=== PATIENT | female | born 1990 | race Two or more races ===

== ENCOUNTER 2016-09-12 00:41 | Inpatient (IN) | payer SELFPAY ==
[~2016-09-12] VITALS: Ht 157.5 cm; Wt 90.7 kg
[2016-09-12 01:11] LABS: BILIRUBIN,URINE NEGATIVE (NEG); GLUCOSE,URINE NEGATIVE (NEG); NITRITE,URINE NEGATIVE (NEG); PH,URINE 6.5; PROTEIN,URINE 30 mg/dL (NEG-TRACE); UROBILINOGEN,URINE 0.2 mg/dL (0.2 mg/dL)
[2016-09-12 01:42] LABS: BASO # 0.1 x10^3/uL (0.0-0.2); BASO % 1 % (0-3); EOS % 2 % (0-3); HEMATOCRIT 34.8 % (36.0-47.0); HEMOGLOBIN 11.4 g/dL (12.0-15.5); LYMPH # 3.4 x10^3/uL (1.0-4.8); LYMPH % 28 % (24-48); MEAN CORPUSCULAR HEMOGLOBIN 27 pg (25-35); MEAN CORPUSCULAR HGB CONC 33 g/dL (31-37); MEAN CORPUSCULAR VOLUME 84 fL (79-100); MONO % 6 % (0-9); NEUT % 64 % (31-73); PLATELET COUNT 237 x10^3/uL (140-400); RED BLOOD COUNT 4.17 x10^6/uL (3.50-5.40); RED CELL DISTRIBUTION WIDTH 17.5 % (11.5-14.5); WHITE BLOOD COUNT 12.1 x10^3/uL (4.0-11.0)
[2016-09-12 01:43] LABS: BACTERIA,URINE MANY /HPF (0-FEW); SQUAMOUS EPITHELIAL CELL,UR MANY /LPF
[2016-09-12 01:52] LABS: CREATININE 0.6 mg/dL (0.6-1.0); GFR 122.8
[2016-09-12 01:59] LABS: ALBUMIN 2.8 g/dL (3.4-5.0); ALK PHOS 83 U/L (46-116); ALT (SGPT) 18 U/L (14-59); AST (SGOT) 17 U/L (15-37); DIRECT BILIRUBIN < 0.1 mg/dL (0.0-0.2); TOTAL BILIRUBIN 0.3 mg/dL (0.2-1.0); TOTAL PROTEIN 7.2 g/dL (6.4-8.2)
--- NOTE | 2016-09-12 02:12 | RAD ---
PROCEDURE Ultrasound the abdomen limited HISTORY ruq pain TECHNIQUE Transabdominal ultrasound was used to evaluate the right upper quadrant of the abdomen. COMPARISON None FINDINGS Mid body of the pancreas was normal. The head and tail of the pancreas were obscured. Liver was normal in size and appearance without a focal lesion. There is shadowing from the gallbladder fossa suggesting cholelithiasis. Common duct was normal measuring 5 millimeters. Right kidney is 10.1 centimeters in length without a mass or hydronephrosis. IMPRESSION 1. Cholelithiasis with shadowing from the gallbladder fossa. 2. Normal common duct. 3. Poor visualization of the pancreas Electronically signed by: Gold Fish MD (Sep 12, 2016 02:10:31)
[2016-09-12] MEDS ORDERED: ACETAMINOPHEN 325 MG TABLET. PO ONE (02:15)
--- NOTE | 2016-09-12 02:25 | PHYS DOC ---
Past Medical History Past Medical History: No Pertinent History Past Surgical History: No Surgical History Alcohol Use: None Drug Use: None Adult General Chief Complaint Chief Complaint: ABDOMINAL PAIN IN HPI HPI She is a 25-year-old female who is an estimated 20 weeks gestation presenting with significant right sided abdominal pain that is localized primarily to her right upper quadrant. She denies any nausea or vomiting. She states it occurred one hour prior to arrival. She rates her pain a 8/10 on the pain scale. She denies any history of abdominal surgery. She states this is her third and that the first two were uncomplicated vaginal deliveries. She denies any vaginal bleeding or discharge. She denies any chest pain or SOB. Review of Systems Review of Systems Constitutional: Denies fever or chills [] Eyes: Denies change in visual acuity, redness, or eye pain [] HENT: Denies nasal congestion or sore throat [] Respiratory: Denies cough or shortness of breath [] Cardiovascular: No additional information not addressed in HPI [] GI: Has abdominal pain, denies nausea, denies vomiting, denies bloody stools or diarrhea [] : Denies dysuria or hematuria [] Musculoskeletal: Denies back pain or joint pain [] Integument: Denies rash or skin lesions [] Neurologic: Denies headache, focal weakness or sensory changes [] Endocrine: Denies polyuria or polydipsia [] Current Medications Current Medications Current Medications Medications (Trade) Dose Ordered Sig/[facility] Start Time Stop Time Status Last Admin Dose Admin Acetaminophen (Tylenol) 650 mg 1X ONCE 09/12/16 02:15 09/12/16 02:16 DC 09/12/16 02:10 650 MG Fentanyl Citrate 50 mcg 50 mcg PRN Q2HR PRN 09/12/16 02:30 09/13/16 02:29 Sodium Chloride (Iv Sodium Chloride 0.9% 1000ml Bag) 1,000 ml @ 125 mls/hr Q8H 09/12/16 02:30 09/13/16 02:29 Allergies Allergies Allergies Coded Allergies Type Severity Reaction Last Updated Verified No Known Drug Allergies 06/06/15 No Physical Exam Physical Exam Constitutional: Well developed, well nourished, no acute distress, non-toxic appearance. [] HENT: Normocephalic, atraumatic, bilateral external ears normal, oropharynx moist, no oral exudates, nose normal. [] Eyes: PERRLA, EOMI, conjunctiva normal, no discharge. [] Neck: Normal range of motion, no tenderness, supple, no stridor. [] Cardiovascular:Heart rate regular rhythm, no murmur [] Lungs & Thorax: Bilateral breath sounds clear to auscultation [] Abdomen: Bowel sounds normal, soft, moderate RUQ tenderness, no masses, no pulsatile masses, gravid abdomen consistent with dates. [] Skin: Warm, dry, no erythema, no rash. [] Back: No tenderness, no CVA tenderness. [] Extremities: No tenderness, no cyanosis, no clubbing, ROM intact, no edema. [] Neurologic: Alert and oriented X 3, normal motor function, normal sensory function, no focal deficits noted. [] Psychologic: Affect normal, judgement normal, mood normal. [] Current Patient Data Vital Signs Vital Signs Date Time Temp Pulse Resp B/P Pulse Ox O2 Delivery O2 Flow Rate FiO2 09/12/16 00:50 98.6 87 20 117/60 100 Room Air 98.6 Lab Values Laboratory Tests Test 09/12/16 01:00 09/12/16 01:09 09/12/16 01:30 Urine Collection Type Unknown Urine Color Yellow Urine Clarity Clear Urine pH 6.5 Urine Specific [place] 1.015 Urine Protein 30mg/dL (NEG-TRACE) Urine Glucose (UA) Negativemg/dL (NEG) Urine Ketones (Stick) Negativemg/dL (NEG) Urine Blood Negative (NEG) Urine Nitrite Negative (NEG) Urine Bilirubin Negative (NEG) Urine Urobilinogen Dipstick 0.2mg/dL (0.2 mg/dL) Urine Leukocyte Esterase Moderate (NEG) Urine RBC 6-10/HPF (0-2) Urine WBC 11-20/HPF (0-4) Urine Squamous Epithelial Cells Many/LPF Urine Bacteria Many/HPF (0-FEW) POC Urine HCG, Qualitative Hcg positive (Negative) White Blood Count 12.1x10^3/uL (4.0-11.0) H Red Blood Count 4.17x10^6/uL (3.50-5.40) Hemoglobin 11.4g/dL (12.0-15.5) L Hematocrit 34.8% (36.0-47.0) L Mean Corpuscular Volume 84fL (79-100) Mean Corpuscular Hemoglobin 27pg (25-35) Mean Corpuscular Hemoglobin Concent 33g/dL (31-37) Red Cell Distribution Width 17.5% (11.5-14.5) H Platelet Count 237x10^3/uL (140-400) Neutrophils (%) (Auto) 64% (31-73) Lymphocytes (%) (Auto) 28% (24-48) Monocytes (%) (Auto) 6% (0-9) Eosinophils (%) (Auto) 2% (0-3) Basophils (%) (Auto) 1% (0-3) Neutrophils # (Auto) 7.7x10^3uL (1.8-7.7) Lymphocytes # (Auto) 3.4x10^3/uL (1.0-4.8) Monocytes # (Auto) 0.7x10^3/uL (0.0-1.1) Eosinophils # (Auto) 0.2x10^3/uL (0.0-0.7) Basophils # (Auto) 0.1x10^3/uL (0.0-0.2) Sodium Level 141mmol/L (136-145) Potassium Level 4.0mmol/L (3.5-5.1) Chloride Level 105mmol/L (98-107) Carbon Dioxide Level 22mmol/L (21-32) Anion Gap 14 (6-14) Blood Urea Nitrogen 10mg/dL (7-20) Creatinine 0.6mg/dL (0.6-1.0) Estimated GFR (Cockcroft-Gault) 122.8 Glucose Level 78mg/dL (70-99) Calcium Level 9.0mg/dL (8.5-10.1) Total Bilirubin 0.3mg/dL (0.2-1.0) Direct Bilirubin < 0.1mg/dL (0.0-0.2) Aspartate Amino Transferase (AST) 17U/L (15-37) Alanine Aminotransferase (ALT) 18U/L (14-59) Alkaline Phosphatase 83U/L (46-116) Total Protein 7.2g/dL (6.4-8.2) Albumin 2.8g/dL (3.4-5.0) L Amylase Level 84U/L (25-115) Lipase 180U/L (73-393) Laboratory Tests 09/12/16 01:30 Laboratory Tests 09/12/16 01:30 EKG EKG [] Radiology/Procedures Radiology/Procedures Abdominal ultrasound demonstrated the following: Mid body of the pancreas was normal. The head and tail of the pancreas were obscured. Liver was normal in size and appearance without a focal lesion. There is shadowing from the gallbladder fossa suggesting cholelithiasis. Common duct was normal measuring 5 millimeters. Right kidney is 10.1 centimeters in length without a mass or hydronephrosis. Course & Med Decision Making Course & Med Decision Making Pertinent Labs and Imaging studies reviewed. (See chart for details) This 25-year-old female is having symptomatic right upper quadrant pain and has an ultrasound demonstrating gallstones will be admitted for symptomatic cholelithiasis. Her laboratory workup is essentially unremarkable. I discussed the need to admit the patient with the OB doctor, Dr. Lopez, who agreed to accept the patient for further evaluation treatment. As needed pain medications were ordered. Fluids were ordered and the patient was placed on a clear liquid diet. She was admitted without incident. Dragon Disclaimer Dragon Disclaimer This electronic medical record was generated, in whole or in part, using a voice recognition dictation system. Departure Departure Impression: Primary Impression: Symptomatic cholelithiasis Additional Impression: Abdominal pain Disposition: ADMITTED INPATIENT Condition: STABLE Referrals: NO PCP (PCP) Problem Qualifiers OLEG PEACE DO Sep 12, 2016 02:25
[2016-09-12] MEDS ORDERED: FENTANYL PF 100 MCG/2 ML VIAL. IV PRN (02:30)
[2016-09-12 02:37] LABS: AMYLASE 84 U/L (25-115)
[2016-09-12] MEDS: IV NORMAL SALINE 1000ML BAG 1,000 ML IV SCH ×3 (03:31→19:22)
[2016-09-12 04:05] VITALS: BP 102/64
[2016-09-12 06:05] VITALS: BP 102/68
--- NOTE | 2016-09-12 11:15 | PDOC ---
Provider Note Provider Note 19 wk IUP Cholelithiasis GB colic Feeling much better this AM Requiring no pain needs +Em sign CBC - BMP 09/12/16 01:30 Consult GS Laboratory Tests Test 09/12/16 01:00 09/12/16 01:09 09/12/16 01:30 Urine Collection Type Unknown Urine Color Yellow Urine Clarity Clear Urine pH 6.5 Urine Specific [place] 1.015 Urine Protein 30mg/dL Urine Glucose (UA) Negativemg/dL Urine Ketones (Stick) Negativemg/dL Urine Blood Negative Urine Nitrite Negative Urine Bilirubin Negative Urine Urobilinogen Dipstick 0.2mg/dL Urine Leukocyte Esterase Moderate Urine RBC 6-10/HPF Urine WBC 11-20/HPF Urine Squamous Epithelial Cells Many/LPF Urine Bacteria Many/HPF Bedside Urine HCG, Qualitative Hcg positive White Blood Count 12.1x10^3/uL Red Blood Count 4.17x10^6/uL Hemoglobin 11.4g/dL Hematocrit 34.8% Mean Corpuscular Volume 84fL Mean Corpuscular Hemoglobin 27pg Mean Corpuscular Hemoglobin Concent 33g/dL Red Cell Distribution Width 17.5% Platelet Count 237x10^3/uL Neutrophils (%) (Auto) 64% Lymphocytes (%) (Auto) 28% Monocytes (%) (Auto) 6% Eosinophils (%) (Auto) 2% Basophils (%) (Auto) 1% Neutrophils # (Auto) 7.7x10^3uL Lymphocytes # (Auto) 3.4x10^3/uL Monocytes # (Auto) 0.7x10^3/uL Eosinophils # (Auto) 0.2x10^3/uL Basophils # (Auto) 0.1x10^3/uL Sodium Level 141mmol/L Potassium Level 4.0mmol/L Chloride Level 105mmol/L Carbon Dioxide Level 22mmol/L Anion Gap 14 Blood Urea Nitrogen 10mg/dL Creatinine 0.6mg/dL Estimated GFR (Cockcroft-Gault) 122.8 Glucose Level 78mg/dL Calcium Level 9.0mg/dL Total Bilirubin 0.3mg/dL Direct Bilirubin < 0.1mg/dL Aspartate Amino Transf (AST/SGOT) 17U/L Alanine Aminotransferase (ALT/SGPT) 18U/L Alkaline Phosphatase 83U/L Total Protein 7.2g/dL Albumin 2.8g/dL Amylase Level 84U/L Lipase 180U/L Current Medications Medications (Trade) Dose Ordered Sig/Jose Cruz Route PRN Reason Start Time Stop Time Status Last Admin Dose Admin Acetaminophen (Tylenol) 650 mg 1X ONCE PO 09/12/16 02:15 09/12/16 02:16 DC 09/12/16 02:10 Fentanyl Citrate 50 mcg 50 mcg PRN Q2HR PRN IV PAIN 09/12/16 02:30 09/13/16 02:29 Sodium Chloride (Iv Sodium Chloride 0.9% 1000ml Bag) 1,000 ml @ 125 mls/hr Q8H IV 09/12/16 02:30 09/13/16 02:29 09/12/16 03:31 [facility] [address] [place], [place] [id number] IMAGING REPORT Signed PATIENT: ENE LUCAS ACCOUNT: [id number] : 1990 LOCATION: ER AGE: 25 SEX: F EXAM STATUS: REG ER ORD. PHYSICIAN: OLEG PEACE DO REASON: r/o cholecystitis PROCEDURE: ABDOMEN LTD PROCEDURE Ultrasound the abdomen limited HISTORY ruq pain TECHNIQUE Transabdominal ultrasound was used to evaluate the right upper quadrant of the abdomen. COMPARISON None FINDINGS Mid body of the pancreas was normal. The head and tail of the pancreas were obscured. Liver was normal in size and appearance without a focal lesion. There is shadowing from the gallbladder fossa suggesting cholelithiasis. Common duct was normal measuring 5 millimeters. Right kidney is 10.1 centimeters in length without a mass or hydronephrosis. IMPRESSION 1. Cholelithiasis with shadowing from the gallbladder fossa. 2. Normal common duct. 3. Poor visualization of the pancreas Electronically signed by: Gold Fish MD (Sep 12, 2016 02:10:31) DICTATED and SIGNED BY: GOLD FISH MD DATE: 09/12/16209 CC: OLEG PEACE DO; NO PCP ~ JULIO CESAR CRESPO MD Sep 12, 2016 11:15
[2016-09-12 11:31] VITALS: BP 102/66
--- NOTE | 2016-09-12 14:44 | RAD ---
Indication anticipated cholecystectomy. survey. No care Obstetrical ultrasound examination was performed. No prior imaging is available associated with this . The cervical length is unremarkable at approximately 5.2 cm. The placenta is predominantly anterior and fundal. The amount of amniotic fluid appears normal. The current presentation is vertex. The biparietal diameter of 5 cm, head circumference of 18.9 cm, abdominal circumference of 16 cm and femoral length of 3.4 cm are consistent with a gestational age of approximately 21 weeks. By sonographic analysis the expected date of confinement is 01/23/2017. Estimated weight is approximately 14 ounces. A heart rate of 162 was documented. There was a 4 chambered heart. A three-vessel cord was seen. The bladder and stomach appeared unremarkable. There was limited observation of the, kidneys, spine and brain but no definite anomalies in these areas were seen. The maternal ovaries were not demonstrated. IMPRESSION: Single, viable, IUP of approximately 20 weeks gestation
[2016-09-12 18:40] VITALS: BP 102/56
[2016-09-12] MEDS ORDERED: CALCIUM CARBONATE 500 MG TAB.CHEW PO PRN (20:00)
--- NOTE | 2016-09-12 21:17 | PDOC ---
Provider Note Provider Note #[id number]--hhlewmhu to OR tomorrow for nyasia de la cruz KIMBERLY D MD Sep 12, 2016 21:17
[2016-09-12 22:00] VITALS: BP 104/56
--- NOTE | 2016-09-12 22:04 | ACF ---
Admission Forms Criteria GALLBLADDER OR BILE DUCT INFLAMMATION OR STONE Clinical Indications for Admission to Inpatient Care ( Place 'X' for any and all applicable criteria): Admission is indicated for patients with ANY ONE of the following(1)(2)(3)(4)(5) : [ ]I. Acute cholecystitis as indicated by ALL of the following: [ ]a) Right upper quadrant pain, mass, or tenderness [ ]b) Systemic signs of inflammation indicated by ANY ONE of the following: [ ]i) Fever [ ]ii) C-reactive protein level greater than 10 mg/L (95 nmol/L) [ ]iii) White blood cell count greater than 10,000/mm3 (10 x109/L) or less than 4000/mm3 (4 x109/L) [X]II. Inpatient admission required rather than observation care (Also use Gallbladder or Bile Duct Inflammation or Stone: Observation Care as appropriate) because of ANY ONE of the following: [ ]a) Common bile duct obstruction diagnosed [ ]b) Vomiting that is severe or persistent [X]c) Severe pain requiring acute inpatient management [ ]d) Signs of intestinal obstruction or peritonitis [A] [ ]e) Severe electrolyte abnormalities requiring inpatient care [ ]f) Absent bowel sounds with complete ileus(8) [ ]g) Hemodynamic instability [ ]h) High fever or infection requiring inpatient admission as indicated by ANY ONE of the following (9): [ ]1) Appropriate outpatient or observation care antimicrobial Treatment. unavailable, not effective, or not feasible [ ]2) Temperature greater than 104.9 degrees F (40.5 degrees C) (oral) [ ]3) Temperature greater than 103.1 degrees F (39.5 degrees C) (oral) or less than 96.8 degrees F (36 degrees C) (rectal) that does not respond to all emergency treatment measures [ ]4) Documented bacteremia [ ]i) IV fluid to replace significant ongoing losses (greater than 3 L/m2 per day) [ ]j) Percutaneous or open drainage (eg, abscess, biliary tract) procedures [ ]k) Immediate inpatient surgery [ ]l) Other condition, treatment or monitoring requiring inpatient admission [ ]III. Acute cholangitis as indicated by ALL of the following(9)(10): [ ]a) Systemic signs of inflammation indicated by ANY ONE of the following: [ ]i) Fever [ ]ii) C-reactive protein level greater than 10 mg/L (95 nmol /L) [ ]iii) White blood cell count greater than 10,000/mm3 (10 x109/L) or less than 4000/mm3 (4 x109/L) [ ]b) Evidence of common bile duct disease indicated by ANY ONE of the following: [ ]i) Total serum bilirubin level greater than or equal to 2 mg/dL (34 micromoles/L) [ ]ii) Liver function test (alkaline phosphatase (ALP), r- glutamyltransferase (GGT), aspartate aminotransferase (AST), or alanine aminotransferase (ALT)) greater than 1.5 times the upper limit of normal[B] [ ]iii) Hepatobiliary imaging showing biliary dilatation or evidence of etiology (eg, stricture, stone, previously placed stent) Extended stay beyond goal length of stay may be needed for (1)(2)): [ ]a) Bacteremia or Hemodynamic instability [ ]b) Cholecystectomy [ ]c) Other surgical procedure(24) [ ]d) Percutaneous or endoscopic ultrasound-guided cholecystostomy The original [facility] content created by [facility] has been revised. The portions of the content which have been revised are identified through the use of italic text or in bold, and [facility] has neither reviewed nor approved the modified material. All other unmodified content is copyright [facility]. Please see references footnoted in the original [facility] edition 2016 Admission Criteria Met?: Yes DEMIAN BELTRAN Sep 12, 2016 22:04
[2016-09-13] VITALS (7 sets, daily range): BP systolic 92–121; BP diastolic 52–74
[2016-09-13] MEDS ORDERED: IV NORMAL SALINE 1000ML BAG 1,000 ML IV SCH (05:45)
[2016-09-13] MEDS ORDERED: PROCHLORPERAZINE 10 MG/2 ML VIAL. IV PRN (07:00)
[2016-09-13] MEDS ORDERED: LIDOCAINE 1% 1 ML SYRINGE. ID PRN (07:00)
[2016-09-13] MEDS ORDERED: HYDROMORPHONE 2 MG/ML VIAL. IV PRN (07:00)
[2016-09-13] MEDS ORDERED: ONDANSETRON PF 4 MG/2 ML VIAL. IV PRN (07:00)
[2016-09-13] MEDS ORDERED: IV RINGERS,LACTATED 1000ML 1,000 ML IV SCH (07:00)
[2016-09-13] MEDS ORDERED: FENTANYL PF 100 MCG/2 ML VIAL. IV PRN (07:00)
[2016-09-13] MEDS ORDERED: FLU VACC QUAD 2016-17 (36MOS+)/PF 0.5 ML SYRINGE. VAX IM ONE (09:00)
[2016-09-13] MEDS ORDERED: INFLUENZA VAX SCREEN BY RX. MC ONE (10:00)
[2016-09-13] MEDS ORDERED: LIDOCAINE 2% 100 MG/5 ML DISP.SYRIN. ONE (10:46)
[2016-09-13] MEDS ORDERED: PROPOFOL 20 ML IV ONE (10:46)
[2016-09-13] MEDS ORDERED: ROCURONIUM 50 MG/5 ML VIAL. ONE (10:47)
[2016-09-13] MEDS ORDERED: DEXAMETHASONE SOD PHOS 20 MG/5 ML VIAL. ONE (10:48)
[2016-09-13] MEDS ORDERED: FAMOTIDINE 20 MG/2 ML VIAL ONE (10:48)
[2016-09-13] MEDS ORDERED: ONDANSETRON PF 4 MG/2 ML VIAL. ONE (10:48)
[2016-09-13] MEDS ORDERED: FENTANYL PF 250 MCG/5 ML VIAL. ONE (10:54)
[2016-09-13] MEDS ORDERED: IOHEXOL 300 MG/ML 50 ML VIAL. ONE (12:32)
[2016-09-13] MEDS ORDERED: SURGICEL HEMOSTAT 4X8 EACH. ONE (12:32)
[2016-09-13] MEDS ORDERED: BUPIVAC MPF-EPI 0.5%-1:200000 30 ML VIAL. ONE (12:32)
[2016-09-13] MEDS ORDERED: SUCCINYLCHOLINE 200 MG/10 ML VIAL. ONE (12:52)
[2016-09-13] MEDS ORDERED: CITRIC ACID/SODIUM CITRATE 30 ML SOLUTION. ONE (12:55)
[2016-09-13] MEDS ORDERED: CEFAZOLIN 2GM PREMIX 50 ML IV ONE ×2 (13:12→14:00)
--- NOTE | 2016-09-13 13:15 | PDOC ---
Provider Note Provider Note no interval changes. plan lap pam, nyasia open today. MIRNA OLVERA MD Sep 13, 2016 13:15
[2016-09-13] MEDS ORDERED: PHENYLEPHRINE in 0.9% NACL PF 1 MG/10 ML DISP.SYRIN. IV ONE (13:55)
[2016-09-13] MEDS ORDERED: SUGAMMADEX SODIUM 200 MG/2 ML VIAL. IVP ONE (14:12)
[2016-09-13] MEDS ORDERED: NEOSTIGMINE METHYLSULFATE 5 MG/5 ML SYRINGE. ONE (14:17)
[2016-09-13] MEDS ORDERED: GLYCOPYRROLATE 1 MG/5 ML VIAL. ONE (14:17)
[2016-09-13] MEDS ORDERED: SEVOFLURANE 61 TO 120 MINUTES. IH ONE (14:26)
[2016-09-13] MEDS ORDERED: METOCLOPRAMIDE HCL 10 MG/2 ML VIAL. ONE (14:46)
--- NOTE | 2016-09-13 14:49 | PDOC ---
BRIEF OPERATIVE NOTE Pre-Op Diagnosis cholelithiasis lap pam k vane loza ebl 10 ivf 1000 satish well to rr stable #[id number] post op: naproxen scheduled ordered per my discussion with dr. morales yesterday-- he asked that i order post op naproxen. MIRNA OLVERA MD Sep 13, 2016 14:49
[2016-09-13] MEDS: FENTANYL PF 100 MCG/2 ML VIAL. IV PRN ×2 (14:56→15:11)
[2016-09-13] MEDS: MORPHINE SULFATE 2 MG/ML DISP.SYRIN. IV PRN ×2 (15:28→15:43)
[2016-09-13] MEDS: NAPROXEN 250 MG TABLET PO SCH (17:11)
--- NOTE | 2016-09-13 20:35 | OP ---
DATE OF SURGERY: 09/13/2016 PREOPERATIVE DIAGNOSIS: Symptomatic cholelithiasis. POSTOPERATIVE DIAGNOSIS: Symptomatic cholelithiasis. PROCEDURE: Laparoscopic cholecystectomy. SURGEON: Mirna Olvera M.D. ANESTHESIA: General. ESTIMATED BLOOD LOSS: 10 mL. IV FLUIDS: 1000 mL. INDICATIONS: The patient is a 25-year-old female who is approximately 20 weeks with intrauterine who presents with episodes of biliary colic. She is being taken today for cholecystectomy. FINDINGS: She had a normal-appearing anatomy and intraoperative cholangiogram was omitted due to her intrauterine and the absence of preoperative suspicion of common duct stones. DESCRIPTION OF PROCEDURE: After informed consent was obtained, the patient was taken to the operating room and placed in supine position. After adequate induction of general anesthesia, she was prepped and draped in usual sterile fashion. An epigastric incision was made with a scalpel. Subcutaneous tissue was prepped with cautery. Fascia was opened with cautery. The posterior fascia was then opened with cautery. A [id number] 0 Vicryl suture was placed in the fascia so that the fascia could be closed at the completion of the procedure. The port was then placed in the preperitoneal space and then the camera was guided under direct laparoscopic vision into the peritoneal cavity. Pneumoperitoneum to 15 mmHg was established under direct vision. This port was placed in the epigastric region to avoid incidental trauma to the uterus. At this point, the uterus is enlarged and it is above the level of the umbilicus and an incision was made just above the umbilicus after injecting the area with local anesthetic and then under direct laparoscopic vision, a 5 mm port was placed carefully and care was taken to avoid contact with the uterus. The camera was then inserted into the supraumbilical port. Then, the patient was placed head up. She was rotated towards the right. In addition, prior to induction of general anesthesia, a bump was placed under her right hip. Two additional ports were placed under direct vision, they were right upper quadrant ports placed after injecting the sites with local anesthetic. These were 5-mm ports. The fundus of the gallbladder was retracted over the liver and slightly towards the right. The infundibulum was retracted towards the right and towards her toes to open the triangle of Calot. At the level of the infundibulum, the leading peritoneal edge was scored with cautery medially and laterally and carried back towards the liver. [place] dissector was then used to dissect out the triangle of Calot. At the completion of dissection, 2 structures were seen leading directly to the gallbladder, one was a cystic artery, one was a cystic duct. The gallbladder had been dissected away from the cystic plate. The liver could be seen behind the gallbladder and the base of the gallbladder was free of extraneous tissues. Two clips were placed on cystic artery proximally, one distally and a clip was placed on the cystic duct adjacent to the gallbladder. Three additional clips were placed on cystic duct distal to the gallbladder duct. The duct was divided sharply with scissors leaving 3 clips on the cystic duct stumps. The cystic artery was transected sharply. The gallbladder was removed from the bed of liver with cautery. She had a very small vessel leading to the body of the gallbladder from the liver that was controlled with a clip process development technician. Otherwise, the gallbladder was removed from bed of the liver with cautery and placed in laboratory bag and brought out through the epigastric incision. Right upper quadrant was irrigated. Irrigant returned clear. No bleeding or bile leakage noted. The ports removed under direct vision. The camera was placed in the epigastric incision and allowed to look back at the uterus. The uterus was gravid, but otherwise unremarkable. The ports were removed under direct vision. They were hemostatic. Pneumoperitoneum was desufflated and then the fascia at the epigastric incision was closed by tying down the previously placed 0 Vicryl suture. Skin incisions were closed with 4-0 Monocryl in subcuticular fashion. Sterile dressings were placed. She tolerated procedure well. There were no apparent complications. She was then transferred in stable condition to the recovery room. MIRNA OLVERA MD DR: ASAD/elaine JOB#: [id number] / [id number] JULIO CESAR Li MD [facility]
--- NOTE | 2016-09-13 21:42 | CONS ---
DATE OF CONSULTATION: 09/12/2016 CHIEF COMPLAINT: Abdominal pain. HISTORY OF PRESENT ILLNESS: The patient is a 25-year-old female who had acute onset of right upper quadrant pain yesterday that was severe and a constant pain. It lasted for several hours and it has since resolved. She has not had similar pain like this before. She does not have nausea or vomiting. Ultrasound revealed cholelithiasis. She was seen in the Emergency Room and admitted and I was consulted to evaluate her. PAST MEDICAL HISTORY: Denies. PAST SURGICAL HISTORY: Denies. MEDICATIONS: vitamins. SOCIAL HISTORY: Nonsmoker, nondrinker. She is . She is currently . She has children at home. FAMILY HISTORY: Noncontributory to this illness. ALLERGIES: No known drug allergies. REVIEW OF SYSTEMS: CONSTITUTIONAL: Denies fever or chills. EYES: Denies abrupt loss of vision or double vision. EARS, NOSE, MOUTH AND THROAT: Denies loss of hearing or ringing in the ears. CARDIOVASCULAR: Denies chest pain or heart palpitations. RESPIRATORY: Denies cough or shortness of breath. GASTROINTESTINAL: See HPI. GENITOURINARY: No dysuria or hematuria. HEMATOLOGIC: No easy bleeding or bruising. MUSCULOSKELETAL: No new myalgias or arthralgias. DERMATOLOGIC: No new skin rashes or lesions. PSYCHIATRIC: No depression or anxiety. NEUROLOGIC: No headaches or seizures. OBSTETRICAL: She says she is able to feel the baby moving and kicking. PHYSICAL EXAMINATION: VITAL SIGNS: She is afebrile with a pulse of 79. When I see her, her respiratory rate was 20, blood pressure 102/66, 100% on room air. GENERAL: Well-developed, well-nourished female in no acute distress. PSYCHIATRIC: She is cooperative with appropriate mood and affect. NEUROLOGIC: No resting tremors. She can move all 4 extremities without difficulty. Her speech is normal. EYES: Pupils are round and reactive. Sclerae nonicteric. HENT: Head is atraumatic. Mucous membranes are moist. Face symmetric. NECK: Supple, without cervical lymphadenopathy, no supraclavicular lymphadenopathy. CARDIOVASCULAR: Palpation of her right radial pulse reveals a 2+ right radial pulse, regular rate and no pedal edema. RESPIRATORY: Her chest wall is nontender to palpation. Respiratory rate is normal. Respirations are nonlabored. She is on room air. ABDOMEN: Soft, nondistended, mildly tender in the right upper quadrant when I examined her. PELVIC: She has a nontender uterus. The fundus of the uterus is at approximately the level of the umbilicus. DERMATOLOGIC: Exposed portions of her skin are unremarkable. LABORATORY DATA: Reviewed. IMAGING: Reviewed. ASSESSMENT: 1. Cholelithiasis. 2. Ultrasound ordered by me after I saw her in consultation today, but before I had a chance to dictate, this was performed that shows a single viable intrauterine of approximately 20 weeks' gestation and a normal amount of amniotic fluid. PLAN: I recommend that the patient be n.p.o. after midnight and proceed with laparoscopic cholecystectomy, possible open. I will not plan to perform a cholangiogram given her intrauterine , her normal liver function tests preoperatively as well as no evidence of choledocholithiasis on ultrasound. Risks of surgery including bleeding, infection, postoperative diarrhea, need to convert to open, retained common duct stone, injury to intra-abdominal structures including hollow viscus, bile duct, vasculature and risk of bile leak were all discussed with the patient. Also discussed the remote risk of heart attack, stroke, DVT, PE, pneumonia and . Finally did discuss the small risk of miscarriage or still with surgery; however, I explained to her that surgery in the second trimester is generally advisable when performing lap cholecystectomy and that she is in the second trimester. Since she requires cholecystectomy during this , the second trimester would be the preferred time to do that. Questions were answered. She desires to proceed. MIRNA OLVERA MD DR: ASAD/elaine JOB#: [id number] / [id number] BEATRIZ
[2016-09-14 00:15] VITALS: BP 95/61
[2016-09-14 05:30] VITALS: BP 99/50
[2016-09-14] MEDS: NAPROXEN 250 MG TABLET PO SCH ×2 (05:36→10:58)
[2016-09-14] MEDS: HYDROCODONE/APAP 5/325MG TABLET. PO PRN ×2 (08:37→10:59)
--- NOTE | 2016-09-14 09:42 | PDOC ---
SURGICAL PROGRESS NOTE Subjective tolerating diet pain with movement, cough, greatest at epigastric incision Vital Signs Vital Signs Date Time Temp Pulse Resp B/P Pulse Ox O2 Delivery O2 Flow Rate FiO2 09/14/16 08:37 16 Room Air 09/14/16 05:30 99.1 62 99/50 97 99.1 09/13/16 14:56 10.0 I&O Intake and Output 09/14/16 07:00 Intake Total 2405 ml Output Total 150 ml Balance 2255 ml Intake Oral 455 ml IV Total 1950 ml Output Urine Total 150 ml # Voids 4 General: Alert, Oriented X3, Cooperative, No acute distress Abdomen: Soft, Other (lap dressings dry, incisoinal ttp) Problem List Problems Medical Problems: (1) Abdominal pain Status: Acute (2) Symptomatic cholelithiasis Status: Acute Assessment/Plan s/p vikas orozco DC when ok with OB FU 2 weeks Problems: DOT COLBERT APRN Sep 14, 2016 09:42
[2016-09-14 10:43] VITALS: BP 88/51
--- NOTE | 2016-09-14 12:15 | PDOC ---
Provider Note Provider Note Doing well VSS +FHT Home per GS JULIO CESAR CRESPO MD Sep 14, 2016 12:15
[2016-09-14 16:55] VITALS: BP 103/56
--- NOTE | 2016-09-17 13:30 | PATHOLOGY ---
PATHOLOGY REPORT * * * * * * * * FINAL DIAGNOSIS: Gallbladder, laparoscopic cholecystectomy: - Cholelithiasis. - Chronic cholecystitis. COMMENT: There is no evidence of malignancy. (MAXIMUSM:; d/t: 09/17/16) REPORT ELECTRONICALLY SIGNED BY: Lewis Santiago M.D. DATE/TIME: 09/17/2016 13:29 * * * * * * * * GROSS PATHOLOGY: Received in formalin labeled "Ene Katz, gallbladder sac with contents," is a 9.4 x 3.7 x 3.7 cm, intact gallbladder with blue-yeager serosal surfaces. Opening the gallbladder reveals a velvety, bile-stained mucosa and an average wall thickness of 0.1 cm. Calculi are present displaying a yellow-grubbs and multifaceted appearance, and no masses are noted grossly. Eligibility Counselor sections from the body and fundus are submitted along with the proximal margin in cassette A1. (CAA; 09/14/2016) INITIAL CPT CODE(S): A; 83212 Professional services performed by [facility] [place] [address] Technical services performed by [facility] at [address] [place] [address]. SPECIMEN(S) RECEIVED: A.Gallbladder sac with contents CLINICAL HISTORY: Cholelithiasis PATIENT: ENE KATZ /AGE: 4 1990 (Age: 25) PATIENT #: [id number] ALT CASE #: SPECIMEN COLLECTION DATE: 09/13/2016 SPECIMEN RECEIVED DATE: 09/14/2016 [facility] - [address] [place] [address] - PHONE: [phone] * * * END OF REPORT * * *
== END 2016-09-14 17:30 | disposition home or self-care (01) | DRG 781 ==
LOC: ER 00:41 → 3 NORTH 02:19
PROVIDERS: ADMIT Specialist; ATTEND Specialist
PROC: 0FT44ZZ Resection of Gallbladder, Percutaneous Endoscopic Approach (ICD-10-PCS; principal; 2016-09-13 13:00)
DX: O99.612 Diseases of the digestive system complicating pregnancy, second trimester (principal); Z3A.20 20 weeks gestation of pregnancy
CPT/HCPCS: 36415; 76705; 76805; 80048; 80076; 81001; 81025; 82150; 83690; 85027; 87086; 90686; C1782; J0330; J0690; J0780; J1100; J2270; J2370; J2405; J2704; J2710; J2765; J3010; J3490; J7030; J7120; Q9967; S0028; 99285-25

== ENCOUNTER 2016-10-25 20:35 | Observation (INO) | payer OTHER ==
[2016-10-25] MEDS ORDERED: IV RINGERS,LACTATED 1000ML 1,000 ML IV SCH (20:37)
[2016-10-25 21:15] LABS: BILIRUBIN,URINE NEGATIVE (NEG); GLUCOSE,URINE NEGATIVE (NEG); NITRITE,URINE NEGATIVE (NEG); PH,URINE 6.5; PROTEIN,URINE NEGATIVE (NEG-TRACE)
[2016-10-25 21:20] LABS: BARBITURATES NEG (NEG); BENZODIAZEPINES NEG (NEG); CANNABINOIDS NEG (NEG); COCAINE NEG (NEG); METHADONE NEG (NEG); OPIATES NEG (NEG); PHENCYCLIDINE NEG (NEG)
[2016-10-25 21:21] LABS: ETHANOL, URINE NEG (NEG)
[2016-10-25 21:25] LABS: BACTERIA,URINE MANY /HPF (0-FEW); WBC,URINE 20-40 /HPF (0-4)
[2016-10-25 21:26] LABS: SQUAMOUS EPITHELIAL CELL,UR MANY /LPF
[2016-10-25] MEDS ORDERED: BUTORPHANOL 2 MG/ML VIAL. IV PRN (21:45)
[2016-10-25] MEDS ORDERED: FENTANYL PF 100 MCG/2 ML VIAL. IV PRN (21:45)
[2016-10-25] MEDS ORDERED: HYDROXYZINE PAMOATE 25 MG CAPSULE PO PRN (21:45)
[2016-10-25 21:57] LABS: BASO % 0 % (0-3); EOS % 2 % (0-3); HEMATOCRIT 33.4 % (36.0-47.0); HEMOGLOBIN 11.1 g/dL (12.0-15.5); LYMPH # 2.7 x10^3/uL (1.0-4.8); LYMPH % 25 % (24-48); MEAN CORPUSCULAR HEMOGLOBIN 29 pg (25-35); MEAN CORPUSCULAR HGB CONC 33 g/dL (31-37); MEAN CORPUSCULAR VOLUME 86 fL (79-100); MONO % 7 % (0-9); NEUT % 66 % (31-73); PLATELET COUNT 228 x10^3/uL (140-400); RED BLOOD COUNT 3.88 x10^6/uL (3.50-5.40); RED CELL DISTRIBUTION WIDTH 18.7 % (11.5-14.5)
[2016-10-25 22:16] LABS: ALBUMIN 2.4 g/dL (3.4-5.0); ALBUMIN/GLOBULIN RATIO 0.5 (1.0-1.7); CALCIUM 8.6 mg/dL (8.5-10.1); CREATININE 0.5 mg/dL (0.6-1.0); GFR 150.3; POTASSIUM 3.6 mmol/L (3.5-5.1); TOTAL BILIRUBIN 0.4 mg/dL (0.2-1.0); TOTAL PROTEIN 7.1 g/dL (6.4-8.2)
== END 2016-10-26 | disposition home or self-care (01) ==
LOC: 3 SO LND 20:35
PROVIDERS: ADMIT Specialist; ATTEND Specialist
DX: O46.92 Antepartum hemorrhage, unspecified, second trimester (principal); O26.892 Other specified pregnancy related conditions, second trimester; R10.30 Lower abdominal pain, unspecified; M54.9 Dorsalgia, unspecified; Z3A.26 26 weeks gestation of pregnancy
CPT/HCPCS: 36415; 80053; 81001; 84443; 85027; 87086; 96360; 96361; G0378; G0379; G0481; J7120

== ENCOUNTER 2016-12-21 16:54 | Observation (INO) | payer OTHER | END 2016-12-21 20:35 | disposition home or self-care (01) | LOC: 3 SO LND 16:54 | PROVIDERS: ADMIT Specialist; ATTEND Specialist | DX: O26.853 Spotting complicating pregnancy, third trimester (principal); O62.9 Abnormality of forces of labor, unspecified; O26.893 Other specified pregnancy related conditions, third trimester; M54.9 Dorsalgia, unspecified; Z3A.35 35 weeks gestation of pregnancy | CPT/HCPCS: G0378; G0379 ==

== ENCOUNTER 2017-01-17 17:17 | Inpatient (IN) | payer OTHER ==
[~2017-01-17] VITALS: Ht 160 cm; Wt 100.2 kg
[2017-01-17 20:52] LABS: NEG OBC AMNIO NEG; POS OBC AMNIO POS
[2017-01-17] MEDS ORDERED: BUTORPHANOL 2 MG/ML VIAL. IV PRN (21:30)
[2017-01-17] MEDS ORDERED: ONDANSETRON PF 4 MG/2 ML VIAL. IV PRN (21:30)
[2017-01-17] MEDS ORDERED: LIDOCAINE 1% PF 30 ML VIAL. INJ PRN (21:30)
[2017-01-17] MEDS ORDERED: IBUPROFEN 600 MG TABLET. PO PRN (21:30)
[2017-01-17] MEDS ORDERED: fentaNYL PF VIAL 100 MCG/2 ML VIAL IV PRN (21:30)
[2017-01-17] MEDS ORDERED: TERBUTALINE 1 MG/ML VIAL. SQ PRN (21:30)
[2017-01-17] MEDS ORDERED: OXYTOCIN 30 UNIT/500 ML PREMIX 500 ML IV PRN (21:30)
[2017-01-17] MEDS ORDERED: 0.9 % SODIUM CHLORIDE 10 ML DISP.SYRIN. IV PRN (21:30)
[2017-01-17] MEDS: IV RINGERS,LACTATED 1000ML 1,000 ML IV SCH (22:20)
[2017-01-17 22:38] LABS: HEMATOCRIT 35.4 % (36.0-47.0); HEMOGLOBIN 11.7 g/dL (12.0-15.5); RED BLOOD COUNT 4.1 x10^6/uL (3.50-5.40); RED CELL DISTRIBUTION WIDTH 14.7 % (11.5-14.5)
[2017-01-17 23:03] VITALS: BP 110/71
--- NOTE | 2017-01-18 08:36 | PDOC1 ---
OB - History Hx of Present Care: Good Care Ultrasounds: Normal mid trimester US Obstetrical Complications: None Medical Complications: None Past Family/Social History * Past Medical, Surgical, Family and Obstetric Histories reviewed from chart. Blood Type: Unknown Rubella: Immune RPR/VDRL: Negative GBS Status: Negative HBsAG: Negative OB - Chief Complaint & HPI Date of Admission: Date of Admission: Jan 17, 2017 at 17:17 Chief Complaint/History : 3 Para: 2 EGA: 38 Reason for admission: active labor Admission Nurse Assessment Rev: Yes Problems: OB - Admission Exam Physical Exam Vitals: VS - Last 72 Hours, by Label Date Time Temp Pulse Resp B/P (MAP) Pulse Ox O2 Delivery O2 Flow Rate FiO2 01/17/17 23:03 98.3 84 20 110/71 (84) Room Air 98.3 HEENT: Normal Heart: Regular Rate Lungs: Clear Abdomen: Gravid, Non tender, Soft Extremities: Edema Reflexes: Normal Cervical Dilatation: 4cm Effacement: 75% Station: -2 Membranes: Intact Heart Rate: Normal Decelerations: No decelerations Contractions on Admission: < 5 Minutes Apart Intensity: Firm Text A: 38 wks IUP Active labor P: Admit for labor management. DIRK MARY Jr, MD Jan 18, 2017 08:36
[2017-01-18] MEDS: IV RINGERS,LACTATED 1000ML 1,000 ML IV SCH ×2 (08:46→12:16)
--- NOTE | 2017-01-18 17:10 | PDOC ---
VAGINAL DELIVERY DATE DATE: 01/18/17 TIME: 17:06 : 3 Para: 2 EGA: 38 VAGINAL DELIVERY: VTX VACCUM ASSISTED: No PLACENTA: Spontaneous 8/9 SEX: Male WEIGHT Weight [3235 gm ] Nuchal Cord: No Amniotic Fluid: Clear PAIN: Natural EPISIOTOMY: No EXTENSION: No EBL 300 ml COMPLICATIONS none CONDITION pt. stable Signs of Intrauterine Infectio: None Shoulder Dystocia: No Problems: DIRK MARY Jr, MD Jan 18, 2017 17:10
[2017-01-18] MEDS ORDERED: ACETAMINOPHEN 325 MG TABLET. PO PRN (17:15)
[2017-01-18] MEDS ORDERED: OXYTOCIN 30 UNIT/500 ML PREMIX 500 ML IV PRN (17:15)
[2017-01-18] MEDS ORDERED: diphenhydrAMINE HCL 25 MG CAPSULE PO PRN (17:15)
[2017-01-18] MEDS ORDERED: MAG HYDROX/ALUMINUM HYD/SIMETH 30 ML ORAL.SUSP PO PRN (17:15)
[2017-01-18] MEDS ORDERED: BENZOCAINE 20% TOPICAL AEROSOL SPRAY 57GM CAN. TP PRN (17:15)
[2017-01-18] MEDS ORDERED: ZOLPIDEM 5 MG TABLET. PO PRN (17:15)
[2017-01-18] MEDS ORDERED: HYDROCORTISONE 1% TOPICAL OINTMENT 30GM TUBE. TP PRN (17:15)
[2017-01-18] MEDS ORDERED: DOCUSATE SODIUM 100 MG CAPSULE. PO PRN (17:15)
[2017-01-18] MEDS ORDERED: SIMETHICONE 80 MG TAB.CHEW PO PRN (17:15)
[2017-01-18] MEDS ORDERED: oxyCODONE/APAP 5/325 1 TAB TABLET PO PRN (17:15)
[2017-01-18] MEDS ORDERED: PHENYLEPH/MINERAL OIL/PETROLAT RECTAL OINTMENT 28GM TUBE. RC PRN (17:15)
[2017-01-18] MEDS ORDERED: 0.9 % SODIUM CHLORIDE 10 ML DISP.SYRIN. IV PRN (17:15)
[2017-01-18] MEDS ORDERED: MAGNESIUM HYDROXIDE 2,400 MG/30 ML ORAL.SUSP. PO PRN (17:15)
[2017-01-18] MEDS ORDERED: MMR per PROTOCOL. MC PRN (17:15)
[2017-01-18] MEDS: IBUPROFEN 800 MG TABLET. PO PRN (18:01)
[2017-01-18 20:25] VITALS: BP 100/64
[2017-01-19 00:15] VITALS: BP 105/64
[2017-01-19 04:00] VITALS: BP 102/64
[2017-01-19] MEDS: IBUPROFEN 800 MG TABLET. PO PRN (04:14)
[2017-01-19 04:16] LABS: BASO # 0.1 x10^3/uL (0.0-0.2); BASO % 1 % (0-3); EOS % 3 % (0-3); HEMATOCRIT 34.1 % (36.0-47.0); HEMOGLOBIN 11.3 g/dL (12.0-15.5); LYMPH # 4.3 x10^3/uL (1.0-4.8); LYMPH % 33 % (24-48); MEAN CORPUSCULAR HEMOGLOBIN 29 pg (25-35); MEAN CORPUSCULAR HGB CONC 33 g/dL (31-37); MEAN CORPUSCULAR VOLUME 86 fL (79-100); MONO % 8 % (0-9); NEUT % 56 % (31-73); PLATELET COUNT 197 x10^3/uL (140-400); RED BLOOD COUNT 3.94 x10^6/uL (3.50-5.40); RED CELL DISTRIBUTION WIDTH 14.9 % (11.5-14.5); WHITE BLOOD COUNT 12.9 x10^3/uL (4.0-11.0)
[2017-01-19 07:09] VITALS: BP 107/64
[2017-01-19 07:22] LABS: POTASSIUM 4.4 mmol/L (3.5-5.1)
[2017-01-19] MEDS ORDERED: FERROUS SULFATE 325 MG TABLET. PO SCH (08:00)
[2017-01-19 11:30] VITALS: BP 92/62
--- NOTE | 2017-01-19 14:36 | PDOC ---
OB Progress Note Date of Service 01/19/17 Time of Evaluation 1430 Notes Pt. feeling well. Pain controlled. Lochia minimal. Breast feeding. Lab Laboratory Tests Test 01/17/17 18:34 01/17/17 22:27 01/19/17 03:50 Amniotic Fluid Swab Test Negative White Blood Count 10.0 x10^3/uL (4.0-11.0) 12.9 x10^3/uL (4.0-11.0) Red Blood Count 4.10 x10^6/uL (3.50-5.40) 3.94 x10^6/uL (3.50-5.40) Hemoglobin 11.7 g/dL (12.0-15.5) 11.3 g/dL (12.0-15.5) Hematocrit 35.4 % (36.0-47.0) 34.1 % (36.0-47.0) Mean Corpuscular Volume 86 fL (79-100) 86 fL (79-100) Mean Corpuscular Hemoglobin 29 pg (25-35) 29 pg (25-35) Mean Corpuscular Hemoglobin Concent 33 g/dL (31-37) 33 g/dL (31-37) Red Cell Distribution Width 14.7 % (11.5-14.5) 14.9 % (11.5-14.5) Platelet Count 194 x10^3/uL (140-400) 197 x10^3/uL (140-400) Neutrophils (%) (Auto) 56 % (31-73) Lymphocytes (%) (Auto) 33 % (24-48) Monocytes (%) (Auto) 8 % (0-9) Eosinophils (%) (Auto) 3 % (0-3) Basophils (%) (Auto) 1 % (0-3) Neutrophils # (Auto) 7.2 x10^3uL (1.8-7.7) Lymphocytes # (Auto) 4.3 x10^3/uL (1.0-4.8) Monocytes # (Auto) 1.0 x10^3/uL (0.0-1.1) Eosinophils # (Auto) 0.3 x10^3/uL (0.0-0.7) Basophils # (Auto) 0.1 x10^3/uL (0.0-0.2) Sodium Level 138 mmol/L (136-145) Potassium Level 4.4 mmol/L (3.5-5.1) Chloride Level 105 mmol/L (98-107) Carbon Dioxide Level 25 mmol/L (21-32) Anion Gap 8 (6-14) Laboratory Tests Test 01/19/17 03:50 White Blood Count 12.9 x10^3/uL (4.0-11.0) Red Blood Count 3.94 x10^6/uL (3.50-5.40) Hemoglobin 11.3 g/dL (12.0-15.5) Hematocrit 34.1 % (36.0-47.0) Mean Corpuscular Volume 86 fL (79-100) Mean Corpuscular Hemoglobin 29 pg (25-35) Mean Corpuscular Hemoglobin Concent 33 g/dL (31-37) Red Cell Distribution Width 14.9 % (11.5-14.5) Platelet Count 197 x10^3/uL (140-400) Neutrophils (%) (Auto) 56 % (31-73) Lymphocytes (%) (Auto) 33 % (24-48) Monocytes (%) (Auto) 8 % (0-9) Eosinophils (%) (Auto) 3 % (0-3) Basophils (%) (Auto) 1 % (0-3) Neutrophils # (Auto) 7.2 x10^3uL (1.8-7.7) Lymphocytes # (Auto) 4.3 x10^3/uL (1.0-4.8) Monocytes # (Auto) 1.0 x10^3/uL (0.0-1.1) Eosinophils # (Auto) 0.3 x10^3/uL (0.0-0.7) Basophils # (Auto) 0.1 x10^3/uL (0.0-0.2) Sodium Level 138 mmol/L (136-145) Potassium Level 4.4 mmol/L (3.5-5.1) Chloride Level 105 mmol/L (98-107) Carbon Dioxide Level 25 mmol/L (21-32) Anion Gap 8 (6-14) Medications Current Medications Sodium Chloride (Normal Saline Flush) 3 ml QSHIFT PRN IV AFTER MEDS AND BLOOD DRAWS; Start 01/17/17 at 21:30 Ringer's Solution 1,000 ml @ 125 mls/hr Q8H IV Last administered on 01/18/17 12:16; Start 01/17/17 at 21:20 Butorphanol Tartrate (Stadol) 2 mg PRN Q1HR PRN IV Severe labor pain; Start 01/17/17 at 21:30 Fentanyl Citrate (Fentanyl 2ml Vial) 100 mcg PRN Q30MIN PRN IV Severe pain Last administered on 01/18/17 15:20; Start 01/17/17 at 21:30 Ondansetron HCl (Zofran) 4 mg PRN Q4HRS PRN IV NAUSEA/VOMITING; Start 01/17/17 at 21:30 Terbutaline Sulfate (Brethine) 0.25 mg 1X PRN PRN SQ SEE COMMENTS; Start at 21:30; Stop 01/18/17 at 21:29; Status DC Lidocaine HCl 30 ml 1X PRN PRN INJ SEE COMMENTS; Start 01/17/17 at 21:30; Stop 01/19/17 at 21:29 Oxytocin/Sodium Chloride 500 ml @ 0 mls/hr CONT PRN PRN IV Post delivery bleeding; Start 01/17/17 at 21:30 Ibuprofen (Motrin) 600 mg PRN Q6HRS PRN PO MODERATE PAIN; Start 01/17/17 at 21: 30 Sodium Chloride (Normal Saline Flush) 10 ml QSHIFT PRN IV AFTER MEDS AND BLOOD DRAWS; Start 01/18/17 at 17:15 Oxytocin/Sodium Chloride 500 ml @ 62.5 mls/hr CONT PRN IV SEE I/O RECORD; Start 01/18/17 at 17:15; Stop 01/19/17 at 01:14; Status DC Acetaminophen (Tylenol) 650 mg PRN Q6HRS PRN PO MILD PAIN / TEMP; Start at 17:15 Ibuprofen (Motrin) 800 mg PRN Q8HRS PRN PO INFLAMMATION/PAIN PREVENTION Last administered on 01/19/17 04:14; Start 01/18/17 at 17:15 Docusate Sodium (Colace) 100 mg PRN BID PRN PO CONSTIPATION; Start 01/18/17 at 17:15 Magnesium Hydroxide (Milk Of Magnesia) 2,400 mg PRN DAILY PRN PO CONSTIPATION; Start 01/18/17 at 17:15 Al Hydroxide/Mg Hydroxide (Mylanta Plus Xs) 30 ml PRN Q4HRS PRN PO HEARTBURN / GAS; Start 01/18/17 at 17:15 Simethicone (Gas-X) 80 mg PRN AFTMEALHC PRN PO GAS / BLOATING; Start 01/18/17 at 17:15 Diphenhydramine HCl (Benadryl) 25 mg PRN Q6HRS PRN PO ITCHING; Start 01/18/17 at 17:15 Benzocaine (Americaine) 1 spray PRN QID PRN TP TOPICAL PAIN; Start 01/18/17 at 17:15 Phenyleph/Shark Oil/Min Oil/Petrol (Preparation H) 1 cristina PRN QID PRN RC RECTAL PAIN; Start 01/18/17 at 17:15 Hydrocortisone (Cortaid) 1 cristina PRN QID PRN TP PERINEAL PAIN; Start 01/18/17 at 17:15 Ferrous Sulfate (Feosol) 325 mg BIDWMEALS PO ; Start 01/19/17 at 08:00 Zolpidem Tartrate (Ambien) 5 mg PRN QHS PRN PO INSOMNIA, MAY REPEAT X1; Start 01/18/17 at 17:15 Info (Do NOT chart on this placeholder) 1 ea 1X PRN PRN MC SEE COMMENTS; Start 01/18/17 at 17:15 Info (Do NOT chart on this placeholder) 1 ea 1X PRN PRN MC SEE COMMENTS; Start 01/18/17 at 17:15 Oxycodone/ Acetaminophen (Percocet 5/325) 2 tab PRN Q4HRS PRN PO MODERATE PAIN , SEVERE PAIN Last administered on 01/19/17t 07:06; Start 01/18/17 at 17:15 Active Scripts Active No Active Prescriptions or Reported Medications Exam Abd: soft, non tender, fundus firm Assessment PPD#1 s/p Plan of Care: Continue current Tx, Mgmt DIRK MARY Jr, MD Jan 19, 2017 14:36
[2017-01-19 17:37] VITALS: BP 99/72
[2017-01-19 20:33] VITALS: BP 99/65
[2017-01-20] VITALS: BP 100/65
[2017-01-20 04:00] VITALS: BP 106/64
[2017-01-20] MEDS: IBUPROFEN 800 MG TABLET. PO PRN (09:02)
[2017-01-20 12:34] VITALS: BP 92/58
--- NOTE | 2017-01-20 14:07 | PDOC ---
OB Progress Note Date of Service 01/20/17 Time of Evaluation 1405 Notes Pt. feeling well. No complaints. Lab Laboratory Tests Test 01/19/17 03:50 White Blood Count 12.9 x10^3/uL (4.0-11.0) Red Blood Count 3.94 x10^6/uL (3.50-5.40) Hemoglobin 11.3 g/dL (12.0-15.5) Hematocrit 34.1 % (36.0-47.0) Mean Corpuscular Volume 86 fL (79-100) Mean Corpuscular Hemoglobin 29 pg (25-35) Mean Corpuscular Hemoglobin Concent 33 g/dL (31-37) Red Cell Distribution Width 14.9 % (11.5-14.5) Platelet Count 197 x10^3/uL (140-400) Neutrophils (%) (Auto) 56 % (31-73) Lymphocytes (%) (Auto) 33 % (24-48) Monocytes (%) (Auto) 8 % (0-9) Eosinophils (%) (Auto) 3 % (0-3) Basophils (%) (Auto) 1 % (0-3) Neutrophils # (Auto) 7.2 x10^3uL (1.8-7.7) Lymphocytes # (Auto) 4.3 x10^3/uL (1.0-4.8) Monocytes # (Auto) 1.0 x10^3/uL (0.0-1.1) Eosinophils # (Auto) 0.3 x10^3/uL (0.0-0.7) Basophils # (Auto) 0.1 x10^3/uL (0.0-0.2) Sodium Level 138 mmol/L (136-145) Potassium Level 4.4 mmol/L (3.5-5.1) Chloride Level 105 mmol/L (98-107) Carbon Dioxide Level 25 mmol/L (21-32) Anion Gap 8 (6-14) Medications Current Medications Sodium Chloride (Normal Saline Flush) 3 ml QSHIFT PRN IV AFTER MEDS AND BLOOD DRAWS; Start 01/17/17 at 21:30 Ringer's Solution 1,000 ml @ 125 mls/hr Q8H IV Last administered on 01/18/17t 12:16; Start 01/17/17 at 21:20 Butorphanol Tartrate (Stadol) 2 mg PRN Q1HR PRN IV Severe labor pain; Start 01/17/17 at 21:30 Fentanyl Citrate (Fentanyl 2ml Vial) 100 mcg PRN Q30MIN PRN IV Severe pain Last administered on 01/18/17 15:20; Start 01/17/17 at 21:30 Ondansetron HCl (Zofran) 4 mg PRN Q4HRS PRN IV NAUSEA/VOMITING; Start 01/17/17 at 21:30 Terbutaline Sulfate (Brethine) 0.25 mg 1X PRN PRN SQ SEE COMMENTS; Start at 21:30; Stop 01/18/17 at 21:29; Status DC Lidocaine HCl 30 ml 1X PRN PRN INJ SEE COMMENTS; Start 01/17/17 at 21:30; Stop 01/19/17 at 21:29; Status DC Oxytocin/Sodium Chloride 500 ml @ 0 mls/hr CONT PRN PRN IV Post delivery bleeding; Start 01/17/17 at 21:30 Ibuprofen (Motrin) 600 mg PRN Q6HRS PRN PO MODERATE PAIN; Start 01/17/17 at 21: 30 Sodium Chloride (Normal Saline Flush) 10 ml QSHIFT PRN IV AFTER MEDS AND BLOOD DRAWS; Start 01/18/17 at 17:15 Oxytocin/Sodium Chloride 500 ml @ 62.5 mls/hr CONT PRN IV SEE I/O RECORD; Start 01/18/17 at 17:15; Stop 01/19/17 at 01:14; Status DC Acetaminophen (Tylenol) 650 mg PRN Q6HRS PRN PO MILD PAIN / TEMP; Start at 17:15 Ibuprofen (Motrin) 800 mg PRN Q8HRS PRN PO INFLAMMATION/PAIN PREVENTION Last administered on 01/20/17 09:02; Start 01/18/17 at 17:15 Docusate Sodium (Colace) 100 mg PRN BID PRN PO CONSTIPATION Last administered on 01/20/17 09:01; Start 01/18/17 at 17:15 Magnesium Hydroxide (Milk Of Magnesia) 2,400 mg PRN DAILY PRN PO CONSTIPATION; Start 01/18/17 at 17:15 Al Hydroxide/Mg Hydroxide (Mylanta Plus Xs) 30 ml PRN Q4HRS PRN PO HEARTBURN / GAS; Start 01/18/17 at 17:15 Simethicone (Gas-X) 80 mg PRN AFTMEALHC PRN PO GAS / BLOATING; Start 01/18/17 at 17:15 Diphenhydramine HCl (Benadryl) 25 mg PRN Q6HRS PRN PO ITCHING; Start 01/18/17 at 17:15 Benzocaine (Americaine) 1 spray PRN QID PRN TP TOPICAL PAIN; Start 01/18/17 at 17:15 Phenyleph/Shark Oil/Min Oil/Petrol (Preparation H) 1 cristina PRN QID PRN RC RECTAL PAIN; Start 01/18/17 at 17:15 Hydrocortisone (Cortaid) 1 cristina PRN QID PRN TP PERINEAL PAIN; Start 01/18/17 at 17:15 Ferrous Sulfate (Feosol) 325 mg BIDWMEALS PO ; Start 01/19/17 at 08:00 Zolpidem Tartrate (Ambien) 5 mg PRN QHS PRN PO INSOMNIA, MAY REPEAT X1; Start 01/18/17 at 17:15 Info (Do NOT chart on this placeholder) 1 ea 1X PRN PRN MC SEE COMMENTS; Start 01/18/17 at 17:15 Info (Do NOT chart on this placeholder) 1 ea 1X PRN PRN MC SEE COMMENTS; Start 01/18/17 at 17:15 Oxycodone/ Acetaminophen (Percocet 5/325) 2 tab PRN Q4HRS PRN PO MODERATE PAIN , SEVERE PAIN Last administered on 01/19/17t 07:06; Start 01/18/17 at 17:15 Active Scripts Active No Active Prescriptions or Reported Medications Exam Abd: soft,non tender, fundus firm Assessment PPD#2 s/p Plan of Care: See new orders (D/c home.) DIRK MARY Jr, MD Jan 20, 2017 14:07
--- NOTE | 2017-01-20 14:07 | DISCH ---
DISCHARGE INSTRUCTIONS Condition on Discharge Condition on Discharge: Stable Activity After Discharge Activity Instructions for Disc: Activity as tolerated Lifting Instructions after Dis: No heavy lifting Driving Instructions after Dis: Do not drive today Diet after Discharge Diet after Discharge: Regular Contacting the DRDru after DC Call your doctor for: Concerns you may have Follow-Up Follow up with: Dr. Lopez in 2 weeks. DIRK MARY Jr, MD Jan 20, 2017 14:07
[2017-01-20] MEDS ORDERED: HYDR-971 PO (14:08)
[2017-01-20] MEDS ORDERED: NAPR500T PO (14:08)
[2017-01-20 22:07] LABS: RPR REFLEX Non Reactive (Non Reactive)
== END 2017-01-20 14:50 | disposition home or self-care (01) | DRG 775 ==
LOC: OBSVTOIN 17:17 → 3 SO LND 17:17 → 3 NORTH 01-18 21:25
PROVIDERS: ADMIT Specialist; ATTEND Specialist
PROC: 10E0XZZ Delivery of Products of Conception, External Approach (ICD-10-PCS; principal; 2017-01-18)
DX: O80 Encounter for full-term uncomplicated delivery (principal); Z37.0 Single live birth; Z3A.38 38 weeks gestation of pregnancy
CPT/HCPCS: 36415; 80051; 84112; 85027; 86593; 86850; 86900; 86901; G0378; J3010; J7120

== ENCOUNTER 2017-10-08 14:21 | Emergency (ER) | payer OTHER ==
[2017-10-08] MEDS: predniSONE 10 MG TABLET PO (15:04)
[2017-10-08] MEDS: HYDROcodone/APAP 5/325MG 1 TAB TABLET PO (15:04)
== END 2017-10-08 15:49 | disposition home or self-care (01) ==
LOC: ER 14:21
DX: M54.32 Sciatica, left side (principal); M79.605 Pain in left leg
CPT/HCPCS: 99283; J7512

== ENCOUNTER 2020-04-19 09:45 | Emergency (ER) | payer SELFPAY ==
[~2020-04-19] VITALS: Ht 157.5 cm; Wt 81.8 kg
[~2020-04-19 09:45] MED LIST: HYDR-3164 PO; NAPR-683 PO; PRED20TA PO
[2020-04-19 10:03] VITALS: BP 107/72
[2020-04-19] MEDS ORDERED: MUPI22OI2 TP (12:11)
[2020-04-19] MEDS ORDERED: SULF1TAB24 PO (12:11)
--- NOTE | 2020-04-19 12:11 | PHYS DOC ---
Past Medical History Past Medical History: No Pertinent History Past Surgical History: No Surgical History Smoking Status: Current Every Day Smoker Alcohol Use: Occasionally Drug Use: None General Adult EDM: Chief Complaint: SKIN RASH/ABSCESS HPI: HPI: Patient is a 29 year old female who presents with concerns about shingles virus stating that her was just diagnosed yesterday with the shingles virus infection and she noticed some painful areas near her labia where she has recently shaved and was concerned that maybe she had contracted the shingles vir us from her . Patient states she noticed them last night before she went to bed. Patient denies any fever chills, any visual changes, any nasal congestion, cough, shortness of breath. Patient denies any chest pains or swelling of her extremities. Patient denies any abdominal pains nausea, vomiting, diarrhea, constipation, or blood in her stools. Patient denies any STI concerns patient denies any vaginal discharge. Patient denies any problems urinating. Patient denies any back pain or pain in her joints, patient denies any skin rashes. Patient denies any headaches focal weaknesses or sensory changes. Patient denies any swelling of her glands, depressions, anxieties, HI or SI. Review of Systems: Review of Systems: Constitutional: Denies fever or chills. Eyes: Denies change in visual acuity. HENT: Denies nasal congestion or sore throat. Respiratory: Denies cough or shortness of breath. Cardiovascular: Denies chest pain or edema. GI: Denies abdominal pain, nausea, vomiting, bloody stools or diarrhea. : Denies dysuria. Musculoskeletal: Denies back pain or joint pain. Integument: Denies rash. Complains of spots on her labia. Neurologic: Denies headache, focal weakness or sensory changes. Lymphatic: Denies swollen glands. Psychiatric: Denies depression or anxiety. Heart Score: Risk Factors: Risk Factors: DM, Current or recent (<one month) smoker, HTN, HLP, family history of CAD, obesity. Risk Scores: Score 0 - 3: 2.5% MACE over next 6 weeks - Discharge Home Score 4 - 6: 20.3% MACE over next 6 weeks - Admit for Clinical Observation Score 7 - 10: 72.7% MACE over next 6 weeks - Early Invasive Strategies Family History: Family History: Patient denies family history significant to this ER visit today. Current Medications: Patient states she takes no home medications prescription nor [id number]. Allergies: Allergies: Allergies Coded Allergies Type Severity Reaction Last Updated Verified No Known Drug Allergies 06/06/15 No Physical Exam: PE: Constitutional: Well developed, well nourished, no acute distress, non-toxic appearance. HENT: Normocephalic, atraumatic, bilateral external ears normal, oropharynx moist, no oral exudates, nose normal. Eyes: PERRLA, EOMI, conjunctiva normal, no discharge. Pupils 4 mm Neck: Normal range of motion, no tenderness, supple, no stridor. Cardiovascular:Heart rate regular rhythm, no murmur, heart sounds S1-S2. Lungs & Thorax: Bilateral breath sounds clear to auscultation all lung bass. Abdomen: Bowel sounds normal, soft, no tenderness, no masses, no pulsatile masses. Skin: Warm, dry, no erythema, patient has 1 lesion to the left labia 4 o'clock position consistent with folliculitis, patient has 2 lesions right labia approximately 8 o'clock position consistent with a folliculitis, nondraining, all 3 lesions have a central punctum, patient recently shaved labia. Back: No tenderness, no CVA tenderness. Extremities: No tenderness, no cyanosis, no clubbing, ROM intact, no edema. Neurologic: Alert and oriented X 3, normal motor function, normal sensory function, no focal deficits noted. Psychologic: Affect normal, judgement normal, mood normal. Current Patient Data: Vital Signs: Vital Signs Date Time Temp Pulse Resp B/P (MAP) Pulse Ox O2 Delivery O2 Flow Rate FiO2 04/19/20 10:03 97.7 73 16 107/72 (84) 100 Room Air 97.7 EKG: EKG: [] Radiology/Procedures: Radiology/Procedures: [] Course & Med Decision Making: Course & Med Decision Making Pertinent Labs and Imaging studies reviewed. (See chart for details) 29-year-old female patient vital signs stable, presents emergency department with concerns that she may have con attracted the shingles virus from her who was recently diagnosed 2 days ago. Patient states that she noticed some spots on her labia and was concerned that she may have the shingles virus. Patient states that she has no STI concerns, and has no vaginal discharge. Patient has no abdominal pain. Denies low pelvic pains. Patient states her last normal period was 2 weeks ago of normal duration of flow and is not concerned for , stating she uses barrier control. Upon physical examination of patient's concerned areas on her labia revealed 3 small nondraining skin lesions consistent with folliculitis, patient just recently shaved her labia. There is no drainage, however there was a central punctum noted at each skin lesion. Discussed findings with patient and reasons of d iagnosis of folliculitis versus shingles. Patient most likely has folliculitis from status post shaving. Patient will be started on Bactrim DS, and topical mupirocin ointment. Patient gave verbal understanding of diagnosis, home care instructions, prescription instructions. Patient gave verbal understanding of return to ER concerns, patient had no further questions or concerns, patient discharged to home without incident. Dragon Disclaimer: Dragon Disclaimer: This electronic medical record was generated, in whole or in part, using a voice recognition dictation system. Departure Departure Impression: Primary Impression: Folliculitis Disposition: HOME, SELF-CARE Condition: GOOD Referrals: NO PCP (PCP) Patient Instructions: Folliculitis Additional Instructions: Please take prescribed medications as directed, follow-up with your primary care physician if not improving, return to the emergency department for further co ncerns or worsening symptoms. Scripts Sulfamethoxazole/Trimethoprim (BACTRIM DS TABLET) 1 Each Tablet 1 TAB PO BID for 7 Days, #14 TAB 0 Refills Prov: DURGA ALMANZA APRN 04/19/20 Mupirocin (MUPIROCIN OINTMENT) 22 Gm Oint...g. 1 LINETTE TP TID for WOUND CARE, #1 TUBE 0 Refills Apply to infected area Prov: DURGA ALMANZA APRN 04/19/20 DURGA ALMANZA APRN Apr 19, 2020 12:11
== END 2020-04-19 12:25 | disposition home or self-care (01) ==
LOC: ER 09:45
DX: L73.9 Follicular disorder, unspecified (principal); F17.200 Nicotine dependence, unspecified, uncomplicated
CPT/HCPCS: 99283